=== PATIENT | female | born 1995 | race Caucasian/White ===

== ENCOUNTER 2016-09-03 00:12 | Emergency (ER) | payer OTHER ==
[2016-09-03 00:31] VITALS: BP 113/74; PULSE 103; TEMP 98.7; BMI 26.9
--- NOTE | 2016-09-03 00:41 | PDOC ---
History of Present Illness - General History Source: Patient Exam Limitations: No Limitations - History of Present Illness Initial Comments: 09/03/16 01:05 The patient is a 21 year old female with no significant past medical history who presents to the ED for 2 days of nausea, vomiting, and diffuse headache. Patient denies abdominal pain or diarrhea. States her last meal was on Wednesday as she has been unable to tolerate any foods secondary to the nausea. Denies dizziness or vision changes. Significant other admits to being recently ill with a viral illness that has resolved on its own. Subsequently, she developed similar symptoms however with increased intensity. Patient states she attempted to take a tylenol for headache and subsequently vomited. Her LMP was 2 weeks ago and she does not believe she is . Patient denies any recent travels. The patient denies fever, chills, diaphoresis, cough, SOB, chest pain, and palpitations. Allergies: NKDA Social History: No alcohol, tobacco, or drug use reported. Past Surgical History: None reported PCP: None reported <Zahra Nicole - Last Filed: 09/03/16 01:06> - General History Source: Patient <TeodoroAndreas saunders - Last Filed: 09/03/16 02:39> - General Chief Complaint: Nausea/Vomiting Stated Complaint: VOMITING Time Seen by Provider: 09/03/16 00:39 Past History <Zahra Nicole - Last Filed: 09/03/16 01:06> - Immunization History Immunization Up to Date: No - Psycho/Social/Smoking Cessation Hx Suicidal Ideation: No Smoking History: Never smoked Have you smoked in the past 12 months: No Information on smoking cessation initiated: No Hx Alcohol Use: No Drug/Substance Use Hx: No Substance Use Type: None <Andreas Begum - Last Filed: 09/03/16 02:39> - Past Medical History Allergies/Adverse Reactions: Allergies Allergy/AdvReac Type Severity Reaction Status Date / Time No Known Allergies Allergy Verified 09/03/16 00:32 Home Medications: Ambulatory Orders Ondansetron [Zofran *Odt*] 4 mg SL TID #30 od.tablet 09/03/16 Review of Systems - Review of Systems Able to Perform ROS?: Yes Comments:: 09/03/16 01:06 CONSTITUTIONAL: Absent: fever, no chills, no fatigue EYES: Absent: visual changes ENT: Absent: ear pain, no sore throat CARDIOVASCULAR: Absent: chest pain, no palpitations RESPIRATORY: Absent: cough, no SOB GI: +nausea, vomiting Absent: abdominal pain, no constipation, no diarrhea GENITOURINARY: Absent: dysuria, no frequency, no hematuria MUSCULOSKELETAL: Absent: back pain, no arthralgia, no myalgia SKIN: Absent: rash NEURO: +headache <Zahra Nicole - Last Filed: 09/03/16 01:06> *Physical Exam - Vital Signs Last Vital Signs Temp Pulse Resp BP Pulse Ox 98.7 F 103 H 18 113/74 100 09/03/16 00:29 09/03/16 00:29 09/03/16 00:29 09/03/16 00:29 09/03/16 00:29 - Physical Exam Comments: 09/03/16 01:06 GENERAL: Well-appearing, well-nourished. Mild distress. HEENT: Normocephalic, atraumatic. PERRL, EOM intact. Dry oral mucosa. CARDIOVASCULAR: Normal S1, S2. Regular rate and rhythm. PULMONARY: Clear to auscultation bilaterally. ABDOMEN: Soft, non-distended, non-tender. No rebound or guarding. EXTREMITIES: Normal ROM in all four extremities. No gross deformities. SKIN: Warm, dry. No rash NEUROLOGICAL: No focal neurological deficits. <Zahra Nicole - Last Filed: 09/03/16 01:06> - Vital Signs Last Vital Signs Temp Pulse Resp BP Pulse Ox 98.7 F 103 H 18 113/74 100 09/03/16 00:29 09/03/16 00:29 09/03/16 00:29 09/03/16 00:29 09/03/16 00:29 <Andreas Begum - Last Filed: 09/03/16 02:39> ED Treatment Course - LABORATORY CBC & Chemistry Diagram: 09/03/16 00:55 09/03/16 00:55 - Medications Given in the ED: ED Medications Discontinued Medications Generic Name Dose Route Start Last Admin Trade Name Freq PRN Reason Stop Dose Admin Ondansetron HCl 4 mg 09/03/16 00:42 09/03/16 00:59 Zofran Injection IVPUSH 09/03/16 00:43 4 mg ONCE STA Administration <Zahra Nicole - Last Filed: 09/03/16 01:06> - LABORATORY CBC & Chemistry Diagram: 09/03/16 00:55 09/03/16 00:55 <Andreas Begum - Last Filed: 09/03/16 02:39> Medical Decision Making - Medical Decision Making 09/03/16 02:39 Dr. Begum: The scribe's documentation has been prepared under my direction and personally reviewed by me in its entirery. I confirm that the note above accurately reflects all work, treatment, procedures, and medical decision making performed by me. <Andreas Begum - Last Filed: 09/03/16 02:39> *DC/Admit/Observation/Transfer - Attestations Scribe Attestion: 09/03/16 01:06 Documentation prepared by Zahra Nicole, acting as clinical medical assistant for Andreas Begum MD/DO. <Zahra Nicole - Last Filed: 09/03/16 01:06> - Discharge Dispostion Admit: No <Andreas Begum - Last Filed: 09/03/16 02:39> Diagnosis at time of Disposition: Nausea & vomiting - Discharge Dispostion Disposition: HOME Condition at time of disposition: Stable - Prescriptions Prescriptions: Ondansetron [Zofran *Odt*] 4 mg SL TID #30 od.tablet - Patient Instructions Printed Discharge Instructions: DI for Nausea -- Adult, DI for Vomiting -- Adult Additional Instructions: take medication as directed. Drink plenty of fluids. Follow up with your doctor as needed. - Post Discharge Activity Work/School Note: Back to Work
[2016-09-03] MEDS ORDERED: SODIUM CHLORIDE 1,000 ML IV STA (00:42)
[2016-09-03] MEDS ORDERED: ONDANSETRON 4 MG/2 ML VIAL IVPUSH STA (00:42)
[2016-09-03] MEDS ORDERED: ONDANSETRON 4 MG/2 ML VIAL ONE (00:52)
[2016-09-03 01:05] LABS: EOSINOPHIL 0.3 % (0-4.5); MCH 31.6 pg (25.7-33.7); MEAN CELL VOLUME 95.9 fl (80-96); MEAN PLT VOLUME 8.3 fl (7.5-11.1); NEUTROPHILS 89.1 % (42.8-82.8); PLATELET COUNT 181 K/MM3 (134-434); RDW 12.8 % (11.6-15.6); WHITE BLOOD COUNT 13.6 K/mm3 (4.0-10.0)
[2016-09-03 01:20] LABS: URINE APPEARANCE CLEAR; URINE BILIRUBIN NEGATIVE (NEGATIVE); URINE BLOOD NEGATIVE (NEGATIVE); URINE COLOR YELLOW; URINE GLUCOSE (UA) NEGATIVE (NEGATIVE); URINE KETONE 2+ (NEGATIVE); URINE LEUK ESTERASE NEGATIVE (NEGATIVE); URINE NITRITE NEGATIVE (NEGATIVE); URINE PROTEIN NEGATIVE (NEGATIVE); URINE UROBILINOGEN NEGATIVE E.U./dl (0.2-1.0)
[2016-09-03 01:28] LABS: ALBUMIN 4.1 g/dl (3.4-5.0); ANION GAP 12 (8-16); CO2 23 mmol/L (21-32); COCKROFT - GAULT 148.7075; CREATININE 0.7 mg/dL (0.55-1.02); GLUCOSE,RANDOM 100 mg/dL (74-106); SGOT/AST 17 U/L (15-37); SGPT/ALT 27 U/L (12-78)
[2016-09-03 01:30] LABS: ALK PHOS 76 U/L (45-117); BILIRUBIN,TOTAL 0.9 mg/dL (0.2-1.0); TOT PROT 7.4 g/dl (6.4-8.2)
== END 2016-09-03 02:47 | disposition home or self-care (01) ==
LOC: JER 00:12
PROC: 3E033GC Introduction of Other Therapeutic Substance into Peripheral Vein, Percutaneous Approach (ICD-10-PCS; principal; 2016-09-03)
DX: R11.2 Nausea with vomiting, unspecified (principal)
CPT/HCPCS: 36415; 80053; 81003; 84703; 85025; 99282-25